=== PATIENT | female | born 1980 | race Caucasian/White ===

== ENCOUNTER 2020-02-01 17:17 | Emergency (ER) | payer MEDICAID ==
[~2020-02-01] VITALS: Ht 147.3 cm; Wt 54.4 kg
[2020-02-01 17:20] VITALS: BP 126/84
--- NOTE | 2020-02-01 18:16 | NUR ---
Patient ambulated to bed 2. RN evaluating patient at bedside.
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
--- NOTE | 2020-02-01 19:17 | NUR ---
REPORT GIVEN TO DELMER BOOTHE FOR CONTINUITY OF CARE
[2020-02-01] MEDS ORDERED: IBUPROFEN 600 MG TAB PO ONE (19:20)
[2020-02-01 20:04] VITALS: BP 126/84
--- NOTE | 2020-02-01 20:04 | NUR ---
Patient discharged with v/s stable. Written and verbal after care instructions given and explained. Patient alert, oriented and verbalized understanding of instructions. Ambulatory with steady gait. All questions addressed prior to discharge. ID band removed. Patient advised to follow up with PMD. Rx of IBUPROFEN WAS given. Patient educated on indication of medication including possible reaction and side effects. Opportunity to ask questions provided and answered. PT HAD 0/10 PAIN LEVEL PRIOR TO D/C
== END 2020-02-01 20:04 | disposition home or self-care (01) ==
LOC: MED 17:17
DX: S56.011A Strain of flexor muscle, fascia and tendon of right thumb at forearm level, initial encounter (principal); X58.XXXA Exposure to other specified factors, initial encounter; Y93.89 Activity, other specified; Y92.89 Other specified places as the place of occurrence of the external cause; Y99.8 Other external cause status
CPT/HCPCS: 73130; 99283